=== PATIENT | male | born 1950 | race Caucasian/White ===

== ENCOUNTER 2017-05-19 07:25 | Day surgery (SDC) | payer MEDICARE ==
[~2017-05-19] VITALS: Ht 182.9 cm; Wt 97.5 kg
--- NOTE | 2017-05-19 08:58 | Operative Note ---
Colonoscopy (Jonathan) Procedure date: 05/19/17 Date of : 54 Procedure:Colonoscopy Colonoscopy with cold snare polypectomy Indications: Mr. Patel is a 67-year-old gentleman who is here for screening colonoscopy. His last colonoscopy was more than 20 years ago. He does have some occasional spotting of blood from internal hemorrhoids when he has straining. He reports no abdominal pain, weight loss, change in his bowel habits or family history of colon cancer. Performing Provider: Muriel Castillo MD Referrring Provider: Darinel Pedro M.D. Sedation: MAC sedation Procedure: Prior to the procedure, a history and physical exam was performed, and patient medications and allergies were reviewed. The risks and benefits of the procedure and the sedation options and risks were discussed with the patient. All questions were answered and informed consent was obtained. Patient identification and proposed procedure were verified by the physician and the nurse. The patient was placed in a left lateral decubitus position. Throughout the procedure, the patient's blood pressure, pulse, and oxygen saturations were monitored continuously. Findings: On digital rectal examination there was normal rectal tone. There were no external hemorrhoids. The prostate was 2+ with some firmness on the RIGHT lateral margin of the prostate. The colonoscope was introduced through the anal canal to the rectum and advanced to the cecum. The ileocecal valve and appendiceal orifice were identified. The scope was advanced a short distance into the ileum which appeared grossly normal. The scope was then withdrawn into the colon. There were 3 colon polyps identified in the ascending 2 and descending 1. These ranged in size from 4-8 mm and were all removed via cold snare polypectomy. The remaining cecum, ascending, transverse, descending, sigmoid and rectum were grossly normal. There were no other mucosal abnormalities identified. Upon retroflexion within the rectum there were grade 1 internal hemorrhoids. Impressions: 1. Colonic polyps 3 2. Grade 1 internal hemorrhoids Recommendations: I will follow up the polyp pathology and recommend repeat colonoscopy again in 5 years based upon the polyp histology. I would encourage fiber supplementation on a long-term daily maintenance basis. Complications: None EBL (ml): 0 at 0857
[2017-05-19 10:05] VITALS: BP 132/82
== END 2017-05-19 09:50 | disposition home or self-care (01) ==
LOC: SDC 07:25
PROVIDERS: Internal Medicine Gastroenterology
PROC: 0DBM8ZX Excision of Descending Colon, Via Natural or Artificial Opening Endoscopic, Diagnostic (ICD-10-PCS; 2017-05-19)
PROC: 0DBK8ZX Excision of Ascending Colon, Via Natural or Artificial Opening Endoscopic, Diagnostic (ICD-10-PCS; principal; 2017-05-19 08:30)
DX: Z12.11 Encounter for screening for malignant neoplasm of colon (principal); Z12.5 Encounter for screening for malignant neoplasm of prostate; D12.4 Benign neoplasm of descending colon; D12.2 Benign neoplasm of ascending colon; K64.0 First degree hemorrhoids; E11.9 Type 2 diabetes mellitus without complications
CPT/HCPCS: G0103

== ENCOUNTER → 2017-05-19 | Outpatient (CLI) | payer MEDICARE ==
[~2017-05-19] MED LIST: AGGRENOX (D1 CAPSULE PO; AMARYL 4MG. TAB4 MG PO; AMBIEN 10MG TAB10 MG PO; CARVEDILOL6.25 M1 PO; CRESTOR20 MG PO; DOXYCYCLINE HY100 M4 PO; FEXOFENADINE PO; FOLIC ACID 1MG T1 MG PO; JANUVIA100 MG PO; KEFLEX 500MG.500 MG PO; LOW DOSE ASPIRI81 M1 PO; MEDROL 4MG. DOSE4 MG PO; METFORMIN HCL1000 MG PO; MICARDIS40 M1 PO; TANZEUM30 MG SC; [UNRECOGNIZED DRUG - OTHER] PO
== END ==
LOC: LAB 10:13
DX: Z12.5 Encounter for screening for malignant neoplasm of prostate (principal)
CPT/HCPCS: G0103